=== PATIENT | male | born 1995 | race Hispanic/Latino ===

== ENCOUNTER 2022-02-09 08:09 | Emergency (ER) | payer OTHER ==
[~2022-02-09] VITALS: Ht 170.2 cm; Wt 89.8 kg
[~2022-02-09 08:09] MED LIST: FLUO20CA30 PO; HYDR25CA PO
[2022-02-09] MEDS ORDERED: ASPIRIN 81MG CHEW TAB PO ONE (08:30)
[2022-02-09 08:50] LABS: BASOPHILS % (AUTO) 0.7 % (0.0-5.0); EOSINOPHILS % (AUTO) 1.6 % (0.0-8.0); HEMATOCRIT 44.2 % (42-54); MEAN CORPUSCULAR HEMOGLOBIN 30.5 pg (27.0-33.0); MEAN CORPUSCULAR HGB CONC 34.4 g/dL (32.0-36.0); MEAN CORPUSCULAR VOLUME 88.8 fL (79-99); MONOCYTES % (AUTO) 8.9 % (3.0-13.0); NEUTROPHILS % (AUTO) 61.3 % (40.0-77.0); PLATELET COUNT (AUTO) 216 K/uL (130-400); RED BLOOD CELL COUNT(AUTO) 4.98 MIL/uL (4.50-6.20); RED CELL DISTRIBUTION WIDTH 12.4 % (11.0-15.5); WHITE BLOOD COUNT (AUTO) 8.9 K/uL (4.8-10.8)
[2022-02-09 09:01] LABS: CREATININE 0.8 mg/dL (0.5-1.5); POTASSIUM 3.6 mmol/L (3.5-5.1)
[2022-02-09 09:05] LABS: TOTAL PROTEIN, SERUM 7.4 g/dL (6.0-8.3)
[2022-02-09 10:23] VITALS: BP 112/65
== END 2022-02-09 10:25 | disposition home or self-care (01) ==
LOC: EDH 08:09
DX: R07.89 Other chest pain (principal); F12.90 Cannabis use, unspecified, uncomplicated; Z20.822 Contact with and (suspected) exposure to COVID-19
CPT/HCPCS: 99285; 71045; 87635; 84484; 80053; 83880; 85025; 85378; 87880; 87804 ×2; 36415; 93005; C9803